=== PATIENT | male | born 1955 | race Caucasian/White ===

== ENCOUNTER → 2016-10-14 | Outpatient (REF) | payer OTHER ==
[~2016-10-14] MED LIST: LIPI80TA PO; LISI-538 PO
[2016-10-14 11:46] LABS: ALBUMIN 3.9 GM/DL (3.2-5.2); ALKALINE PHOSPHATASE 110 U/L (45-117); ALT/SGPT 27 U/L (12-78); ANION GAP 4 MEQ/L (8-16); AST/SGOT 19 U/L (15-37); BILIRUBIN,TOTAL 0.5 MG/DL (0.2-1.0); BLOOD UREA NITROGEN 16 MG/DL (7-18); CALCIUM LEVEL 9.2 MG/DL (8.8-10.2); CARBON DIOXIDE LEVEL 30 MEQ/L (21-32); CHLORIDE LEVEL 106 MEQ/L (98-107); CHOLESTEROL LEVEL 152 MG/DL (<200); GLOMERULAR FILTRATION RATE > 60.0 (>49); GLUCOSE, FASTING 110 MG/DL (80-110); POTASSIUM SERUM 4.7 MEQ/L (3.5-5.1); SODIUM LEVEL 140 MEQ/L (136-145); TOTAL PROTEIN 6.9 GM/DL (6.4-8.2); TRIGLYCERIDES LEVEL 230 MG/DL (<150)
== END ==
LOC: M SFHCPLAZ 07:49
PROVIDERS: ATTEND Physician Assistant
DX: I10 Essential (primary) hypertension (principal); E78.4 Other hyperlipidemia; Z12.5 Encounter for screening for malignant neoplasm of prostate
CPT/HCPCS: 36415; 80053; 80061; G0103

== ENCOUNTER → 2019-04-25 | Outpatient (CLI) | payer MEDICARE, BC, OTHER ==
--- NOTE | 2019-04-25 08:38 | REP ---
Abdominal aortic sonography: History: Screening for abdominal aortic aneurysm . Findings: Scanning through the retroperitoneum demonstrates that the abdominal aorta is normal in caliber at the level of the diaphragmatic hiatus measuring 2.6 x 2.2 cm in AP by transverse dimension respectively. The measurements of the aorta at the level of the renal artery origins is 2.1 x 2.2 cm in AP by transverse dimension diameter respectively. The distal aorta tapers to 2.0 x 2.3 cm AP by transverse dimension. The right and left common iliac arteries are normal measuring 1.5 and 1.3 cm in AP dimension respectively. No aneurysm is seen. No periaortic disease is observed. Impression: Negative abdominal aortic sonography. Electronically Signed by Fred Schilling MD 04/25/2019 08:29 A
== END ==
LOC: M RAD 06:40
PROVIDERS: ATTEND Family Medicine
DX: Z13.6 Encounter for screening for cardiovascular disorders (principal)

== ENCOUNTER → 2019-07-18 | Outpatient (RCR) | payer MEDICARE, BC, OTHER | LOC: M PT 06-26 09:28 | PROVIDERS: ATTEND Family Medicine | DX: M75.102 Unspecified rotator cuff tear or rupture of left shoulder, not specified as traumatic (principal) ==

== ENCOUNTER 2019-08-17 08:31 | Outpatient (RCR) | payer MEDICARE, BC, OTHER | END 2019-08-18 | LOC: M PT 08:31 | PROVIDERS: ATTEND Nurse Practitioner Adult Health | DX: M67.912 Unspecified disorder of synovium and tendon, left shoulder (principal) ==

== ENCOUNTER 2019-09-13 08:00 | Outpatient (RCR) | payer MEDICARE, BC, OTHER | END 2019-09-16 | LOC: M PT 08:00 | PROVIDERS: ATTEND Nurse Practitioner Adult Health | DX: Z51.89 Encounter for other specified aftercare (principal); M67.912 Unspecified disorder of synovium and tendon, left shoulder ==

== ENCOUNTER 2019-09-22 08:32 | Outpatient (RCR) | payer MEDICARE, BC, OTHER | END 2019-10-17 | LOC: M PT 08:32 | PROVIDERS: ATTEND Nurse Practitioner Adult Health | DX: M67.912 Unspecified disorder of synovium and tendon, left shoulder (principal) ==

== ENCOUNTER → 2020-04-25 | Outpatient (CLI) | payer MEDICARE, BC, OTHER ==
[2020-04-25 11:37] LABS: ALBUMIN 4.2 GM/DL (3.2-5.2); ALT/SGPT 34 U/L (12-78); BLOOD UREA NITROGEN 23 MG/DL (7-18); CALCIUM LEVEL 9.5 MG/DL (8.8-10.2); CARBON DIOXIDE LEVEL 31 MEQ/L (21-32); CHLORIDE LEVEL 101 MEQ/L (98-107); CHOLESTEROL LEVEL 157 MG/DL (<200); CHOLESTEROL RISK RATIO 2.012 (<5); CREATININE FOR GFR 1.08 MG/DL (0.70-1.30); GLOMERULAR FILTRATION RATE > 60.0 (>49); GLUCOSE, FASTING 123 MG/DL (70-100); HDL CHOLESTEROL 78 MG/DL (>40); LDL CHOLESTEROL 62 MG/DL (<100); NON-HDL-C 79 MG/DL; POTASSIUM SERUM 4.8 MEQ/L (3.5-5.1); SODIUM LEVEL 134 MEQ/L (136-145); TOTAL PROTEIN 7.3 GM/DL (6.4-8.2); TRIGLYCERIDES LEVEL 86 MG/DL (<150)
[2020-04-25 12:32] LABS: HEMOGLOBIN A1c 5.6 %
== END ==
LOC: M PLALAB 08:04
PROVIDERS: ATTEND Nurse Practitioner Adult Health
DX: G04.39 Other acute necrotizing hemorrhagic encephalopathy (principal); E78.2 Mixed hyperlipidemia; Z13.1 Encounter for screening for diabetes mellitus; Z79.899 Other long term (current) drug therapy

== ENCOUNTER → 2020-11-04 | Outpatient (CLI) | payer MEDICARE, BC, OTHER ==
[~2020-11-04] MED LIST changes: -LISI-538 PO; +LISI20TA33 PO
--- NOTE | 2020-11-04 11:00 | REP ---
INDICATION: LUNG SCREENING. COMPARISON: Comparison chest CT study May 25, 2014.. TECHNIQUE: Dose reduction was performed utilizing CARE dose with automated adjustment of the kV and MAS according to patient size; iterative reconstruction, automated exposure control, as well as adaptive dose shielding. Helical scanning is acquired and 3 mm axial images are provided at lung only windows. FINDINGS: Digital preliminary gold leaf gilder radiograph is unremarkable. There are old healed fractures on the left posteriorly involving what appear to be rib numbers 9,10, and 11. Vascular calcification is observed. No pulmonary mass, nodule, or infiltrate is seen. IMPRESSION: Lung RADS category 1 findings. Repeat screening exam suggested in 1 year. <Electronically signed by Ronan Schilling > 11/04/20 [id number]
== END ==
LOC: M RAD 09:23
PROVIDERS: ATTEND Nurse Practitioner Adult Health
DX: Z12.2 Encounter for screening for malignant neoplasm of respiratory organs (principal)

== ENCOUNTER → 2022-06-23 | Outpatient (CLI) | payer MEDICARE, BC, OTHER ==
[2022-06-23 15:10] LABS: HEMOGLOBIN A1c 5.3 % (4.0-6.0)
[2022-06-23 15:15] LABS: ALBUMIN 4.1 G/DL (3.2-5.2); ALKALINE PHOSPHATASE 74 U/L (46-116); ALT/SGPT 35 U/L (7.0-40); AST/SGOT 24 U/L (<34); BILIRUBIN,TOTAL 0.5 MG/DL (0.3-1.2); BLOOD UREA NITROGEN 21 MG/DL (9-23); CALCIUM LEVEL 9.3 MG/DL (8.3-10.6); CARBON DIOXIDE LEVEL 26 MMOL/L (20-31); CHLORIDE LEVEL 105 MMOL/L (98-107); CHOLESTEROL LEVEL 141 MG/DL (<200); CHOLESTEROL RISK RATIO 2.58 (<5); CREATININE FOR GFR 0.88 MG/DL (0.70-1.30); GLOMERULAR FILTRATION RATE > 60.0 (>49); GLUCOSE, FASTING 122 MG/DL (74-106); HDL CHOLESTEROL 54.6 MG/DL (>40); LDL CHOLESTEROL 68.6 MG/DL (<100); NON-HDL-C 86 MG/DL; POTASSIUM SERUM 4.2 MMOL/L (3.5-5.1); SODIUM LEVEL 138 MMOL/L (136-145); TOTAL PROTEIN 6.6 G/DL (5.7-8.2); TRIGLYCERIDES LEVEL 89 MG/DL (<150)
== END ==
LOC: M PLALAB 11:07
PROVIDERS: ATTEND Nurse Practitioner Adult Health
DX: Z13.1 Encounter for screening for diabetes mellitus (principal); E78.00 Pure hypercholesterolemia, unspecified; Z12.5 Encounter for screening for malignant neoplasm of prostate
CPT/HCPCS: 36415; 80053; 80061; 83036; G0103

== ENCOUNTER → 2024-07-25 | Outpatient (CLI) | payer MEDICARE, BC ==
[~2024-07-25] MED LIST changes: +ATOR-398 PO; -LIPI80TA PO
== END ==
LOC: M RAD 06:52
PROVIDERS: ATTEND Nurse Practitioner Adult Health
DX: Z87.891 Personal history of nicotine dependence (principal)

== ENCOUNTER → 2024-11-01 | Outpatient (CLI) | payer MEDICARE, BC ==
[2024-11-01 11:43] LABS: HEMATOCRIT 43.2 % (42.0-52.0); HEMOGLOBIN 14.4 g/dl (13.5-17.5); MEAN CORPUSCULAR HEMOGLOBIN 33.6 pg (27.0-33.0); MEAN CORPUSCULAR HGB CONC 33.3 g/dl (32.0-36.5); MEAN CORPUSCULAR VOLUME 100.7 fl (80.0-96.0); PLATELET COUNT, AUTOMATED 345 10^3/uL (150-450); RED BLOOD COUNT 4.29 10^6/uL (4.30-6.10)
[2024-11-01 12:13] LABS: BILIRUBIN,TOTAL 1.1 MG/DL (0.3-1.2); CALCIUM LEVEL 9.3 MG/DL (8.3-10.6); CHOLESTEROL RISK RATIO 1.95 (<5); CREATININE FOR GFR 0.94 MG/DL (0.70-1.30); GLOMERULAR FILTRATION RATE 86.7 (>42); HDL CHOLESTEROL 73.7 MG/DL (>40); LDL CHOLESTEROL 55.7 MG/DL (<100); NON-HDL-C 70.3 MG/DL; POTASSIUM SERUM 4.3 MMOL/L (3.5-5.1); PSA SCREENING 1.71 NG/ML (< 4.00); TOTAL PROTEIN 6.9 G/DL (5.7-8.2)
== END ==
LOC: M PLALAB 07:33
PROVIDERS: ATTEND Nurse Practitioner Adult Health
DX: I10 Essential (primary) hypertension (principal); Z12.5 Encounter for screening for malignant neoplasm of prostate
CPT/HCPCS: 36415; 80053; 80061; 85027; G0103